=== PATIENT | female | born 1990 | race African-American/Black ===

== ENCOUNTER 2016-08-27 01:35 | Emergency (ER) | payer MEDICAID ==
[~2016-08-27] VITALS: Ht 165.1 cm; Wt 58.0 kg
[2016-08-27 02:04] VITALS: BP 116/65
== END 2016-08-27 08:12 | disposition left against medical advice (07) ==
LOC: ER 01:35
DX: Z53.21 Procedure and treatment not carried out due to patient leaving prior to being seen by health care provider (principal)